=== PATIENT | female | born 1955 | race Two or more races ===

== ENCOUNTER 2016-11-22 11:06 | Outpatient (CLI) | payer OTHER ==
--- NOTE | 2016-11-22 13:47 | Diagnostic Imaging Report ---
Indication: Abdominal pain, hepatitis C, nonalcoholic liver fatty disease Technique: Grayscale and duplex images of the upper abdomen Comparison: None Findings: Normal pancreas. Liver demonstrates equivocally minimally increased echogenicity, no focal abnormality. No surface nodularity. Patent portal and hepatic veins. Gallbladder is unremarkable, no stones, wall thickening, nor pericholecystic fluid. Negative sonographic Whelan's sign. 4 mm common bile duct. Right kidney measures 10 cm length, demonstrates an echogenic focus within the cortex which measures 7 mm diameter. This is non-shadowing. Left kidney measures 10.6 cm in length. No hydronephrosis bilaterally. No left renal focal abnormality. Abdominal aorta is partially obscured, visualized portions are unremarkable. Normal spleen. Impression: Equivocally minimally increased hepatic echogenicity; if real, could indicate hepatocellular disease such as fatty change No focal abnormality Negative for gallstones or dilated ducts Echogenic 7 mm focus within the right renal cortex, could represent a calcification or a small angiomyolipoma
== END 2016-11-22 12:36 | disposition home or self-care (01) ==
LOC: ULS 11:06
DX: K76.0 Fatty (change of) liver, not elsewhere classified (principal); R10.9 Unspecified abdominal pain
CPT/HCPCS: 76700

== ENCOUNTER 2016-12-16 10:15 | Outpatient (CLI) | payer OTHER ==
--- NOTE | 2016-12-16 15:10 | Diagnostic Imaging Report ---
Indication:Abdominal pain Technique: Grayscale and duplex Doppler imaging of the abdomen performed. Comparison: None Findings: The liver, demonstrated part of the pancreas, gallbladder, and IVC, both kidneys, spleen appear unremarkable. No gallstones are seen. Aorta is not seen due to bowel gas. There is no biliary ductal dilatation identified. Doppler evaluation of the main portal vein shows patency. There is no ascites. No hydronephrosis seen. CBD measures 3.7 mm. Impression: Negative abdominal ultrasound. Aorta not seen due to bowel gas.
== END 2016-12-16 12:15 | disposition home or self-care (01) ==
LOC: ULS 10:15
DX: R10.9 Unspecified abdominal pain (principal)
CPT/HCPCS: 76700